=== PATIENT | female | born 1990 | race Caucasian/White ===

== ENCOUNTER 2016-07-15 12:19 | Emergency (ER) | payer OTHER ==
[~2016-07-15] VITALS: Ht 170.2 cm; Wt 45.0 kg
[2016-07-15 12:24] VITALS: BP 125/86; PULSE 85; RESP 16; O2SAT 100
[2016-07-15] MEDS ORDERED: CLON0.5T PO (12:27)
[2016-07-15] MEDS ORDERED: VENL-57 PO (12:29)
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
[2016-07-15 13:36] LABS: BASOPHILS % (AUTO) 1.1 % (0-3); EOSINOPHILS % (AUTO) 0.8 % (0-5); MONOCYTES % (AUTO) 5.7 % (4-12); Mean Corpuscular Hemoglobin 29.4 pg (27.0-35.0); Mean Corpuscular Volume 87.9 fL (81-100); NEUTROPHILS % (AUTO) 65.5 % (40-74); Platelet Count 267 bil/L (150-400)
[2016-07-15] MEDS ORDERED: HYOS0.1218 SL (14:55)
[2016-07-15 15:00] VITALS: BP 110/64; PULSE 52; RESP 16; O2SAT 94
== END 2016-07-15 15:01 | disposition home or self-care (01) ==
LOC: SED 12:19
DX: R10.84 Generalized abdominal pain (principal); R19.7 Diarrhea, unspecified